=== PATIENT | female | born 1990 | race Caucasian/White ===

== ENCOUNTER → 2018-05-11 | Outpatient (CLI) | payer OTHER | LOC: FIMAGING 13:20 | PROVIDERS: ATTEND Advanced Practice Midwife | DX: O28.5 Abnormal chromosomal and genetic finding on antenatal screening of mother (principal); Z3A.32 32 weeks gestation of pregnancy ==

== ENCOUNTER 2018-07-04 05:05 | Inpatient (IN) | payer OTHER ==
[2018-07-04] MEDS ORDERED: EPSOM SALT 454 GM TP PRN (05:37)
[2018-07-04] MEDS ORDERED: TERBUTALINE SULFATE 1 MG/ML VIAL IV PRN (05:37)
[2018-07-04] MEDS ORDERED: OXYTOCIN/RINGERS LACTATE 1,000 ML IV PRN (05:37)
[2018-07-04] MEDS ORDERED: LR 1,000 ML IV PRN (05:37)
[2018-07-04] MEDS ORDERED: IBUPROFEN 600 MG TAB PO PRN (05:37)
[2018-07-04] MEDS ORDERED: OLIVE OIL 118 ML BTL MISC PRN (05:37)
[2018-07-04] MEDS ORDERED: LIDOCAINE 1% 300 MG/30 ML SDV SC PRN (05:37)
[2018-07-04] MEDS ORDERED: MISOPROSTOL 200 MCG TAB PR PRN (05:37)
[2018-07-04] MEDS ORDERED: AMPICILLIN SODIUM 2 GM in NS 100 ML IV ONE (05:37)
[2018-07-04 05:55] LABS: PLATELET COUNT 204 10^3/uL (150-400)
[2018-07-04] MEDS ORDERED: AMPICILLIN SODIUM 2 GM/10 ML VIAL ONE (05:55)
--- NOTE | 2018-07-04 06:22 | PDGENHP ---
History and Physical History and Physical: CARE: [facility] HPI: Patient is a 28 yo G 2 P 0 @ 39.5 weeks that presents to L&D with complaints of strong uterine ctx. EDC: 07/06/18 which is based on LMP: 09/29/18 which is known and consistent with Ultrasound at 20 weeks. Her is complicated by: +GBS bacteruria, depression and anxiety, daily MJ use Review of Systems: Constitutional: Denies any fever, chills, or fatigue HEENT: denies any visual changes, difficulty swallowing, hearing loss Cardiovascular: Denies any chest pain, palpitations, leg swelling Respiratory: denies any cough, wheezing, or shortness of breathe GI: Denies any nausea, vomiting, diarrhea, constipation : denies any dysuria, urgency, frequency, vaginal bleeding Musculoskeletal: denies any muscle or bone pain Skin: denies any rashes Neuro: denies any headache, seizures, lightheadedness, dizziness, or loss of consciousness Psychiatric: denies any depression, anxiety, or SI/HI thoughts HISTORY: Previous OB history: EAB in 2014 Social history: partner Paul, employed [employer] Family history: mother hypothyroid Past medical history: depression and anxiety Past surgical history: denies Medications: PNV Allergies (list reaction): NKDA LABS: Rh: O+ ABS: Neg Rubella: Immune HbsAg: NR HIV: NR VDRL: NR 1hr: 83 GC: Neg Chlamydia: Neg Pap: Normal GBS: + bacteruria BMI: (prepreg) 30 PHYSICAL EXAM: Constitutional: WN, A&Ox3 HEENT: normocephalic atraumatic, supple Heart: RRR, no murmur Chest: CTA-B Skin: warm, dry, intact Abdomen: Soft, nontender, gravid SVE: 7-8/90/-1 Extremities: [ ] edema, negative homans sign Neuro: grossly normal Psych: normal affect assessment: FHT baseline 130, +accels, no decels, moderate variability Contractions: toco q 2-3 min Assessment: 1) 28 yo G 2 P 0 with IUP@ 39w5d 2) active labor 3) GBS pos 4) Cat 1 FHR tracing Plan: 1) Admit to L&D 2) antibiotic therapy 3) anticipate
[2018-07-04] MEDS ORDERED: OLIVE OIL 118 ML BTL ONE (06:24)
[2018-07-04] MEDS ORDERED: AMMONIA AROMATIC 1 EACH AMP IH ONE (06:24)
[2018-07-04] MEDS ORDERED: LIDOCAINE 1% 300 MG/30 ML SDV ONE (06:24)
[2018-07-04] MEDS ORDERED: TERBUTALINE SULFATE 1 MG/ML VIAL ONE (06:24)
[2018-07-04] MEDS ORDERED: OXYTOCIN 10 UNIT/ML VIAL ONE (06:24)
[2018-07-04] MEDS ORDERED: MISOPROSTOL 200 MCG TAB ONE (06:24)
[2018-07-04] MEDS ORDERED: HYDROCORTISONE 0.5% CREAM TP PRN (07:38)
--- NOTE | 2018-07-04 07:46 | OBDEL ---
Info Type: Vaginal Presentation at Delivery: Vertex L&D Analgesia/Anesthesia Type: Nitrous GBS+: Yes (treated x 1 ) Intrapartum Medications: Discontinued Medications Generic Name Dose Route Start Last Admin Trade Name Quinn PRN Reason Stop Dose Admin Ampicillin Sodium 2 gm/ Sodium 110 mls @ 220 mls/hr 07/04/18 05:37 07/04/18 05:58 Chloride IV 07/04/18 06:06 110 mls ONCE ONE Administration Protocol Indications for Delivery: Spontaneous Labor, SROM Vaginal Delivery - Delivery Provider Delivery Physician/CNM: Sobeida Canrevoal proctoring) - Labor and Delivery Onset of Contractions Date: 07/04/18 Onset of Contractions Time: 01:00 Onset of Contractions Type: Spontaneous Rupture of Membranes Date: 07/04/18 Rupture of Membranes Time: 06:45 Rupture of Membranes Type: Spontaneous Amniotic Fluid Color: Clear Dilation Complete Date: 07/04/18 Dilation Complete Time: 06:45 Placenta Delivery Date: 07/04/18 Placenta Delivery Time: 06:53 Total Hours of Labor: 5 Laceration: 1st Degree (periurethral) Repair: 4-0, Chromic (Leida rosales assumed care for delivery) Vaginal Sponge Count Correct: Yes Vaginal Needle Count Correct: Yes Vaginal Sweep Performed: Yes EBL: 200 Data AMALIA: 07/06/18 Gestational Age: 39 week(s) and 5 day(s) Anders Delivery Date: 07/04/18 Delivery Time: 07:14 Sex of : Female Score (1 Min): 8 Score (5 Min): 9 (Cammie to evaluate) ICD10 Worksheet Patient Problems: Problems Problem Status Onset (normal spontaneous vaginal delivery) Acute Term Acute - ICD10 Problem Qualifiers (1) Term (2) (normal spontaneous vaginal delivery)
[2018-07-04] MEDS: ACETAMINOPHEN 325 MG TAB PO SCH ×3 (08:55→22:34)
[2018-07-04] MEDS ORDERED: AMPICILLIN SODIUM 1 GM in NS 100 ML IV SCH (09:45)
[2018-07-04] MEDS: DOCUSATE SODIUM 100 MG CAP PO PRN ×2 (14:16→22:34)
[2018-07-04] MEDS: IBUPROFEN 600 MG TAB PO SCH ×2 (14:16→20:03)
[2018-07-05] MEDS: IBUPROFEN 600 MG TAB PO SCH ×3 (01:58→15:51)
[2018-07-05] MEDS: ACETAMINOPHEN 325 MG TAB PO SCH ×3 (04:58→18:32)
[2018-07-05] MEDS: DOCUSATE SODIUM 100 MG CAP PO PRN (08:46)
[2018-07-05 12:29] VITALS: BP 112/72
--- NOTE | 2018-07-05 14:42 | OBGCSDC ---
General Delivery Information - General Info : 2 Para: 1 Abortions: 1 Type: Vaginal L&D Analgesia/Anesthesia Type: Nitrous Admission Date: 07/04/18 Labs: Patient ABO/Rh O POSITIVE 07/04/18 05:40 Hct 37.3 % (38.0-47.0) L 07/05/18 05:00 - Hospital Course : 07/05/18 14:39 S) Pt doing well, reports min pain and bleeding. she is ambulating and voiding without difficulty. She is . She desires discharge home today. O) VSS, afebrile constitutional: WNF, A&Ox3 HEENT: normocephalic, atraumatic, supple Heart: RRR, No murmur Chest: CTA-B Breasts: soft, nontender, no engorgement, nipples intact/normal Abdomen: Soft, nontender Uterus: Firm at U-2 Lochia: Minimal rubra Perineum: Intact, healing well Extremities: Trace edema, and negative Yamel's sign Neuro: Grossly normal A) 28-year-old S/P PPD#2 P) Discharge home today Continue Pelvic rest x6wks Discussed danger signs (infection, preeclampsia, depression, heavy bleeding, etc ) RTO in 2/4/6 weeks 07/05/18 14:40 Vaginal - Delivery Provider Delivery Physician/CNM: Sobeida Chew (revoal proctoring) - Diagnosis Labor: Spontaneous Rupture of Membranes Type: Spontaneous Amniotic Fluid Color: Clear Laceration: 1st Degree (periurethral) Repair: 4-0, Chromic (Leida rosales assumed care for delivery) - Delivery EBL: 200 [place] Data AMALIA: 07/06/18 Gestational Age: 39 week(s) and 6 day(s) Anders Delivery Date: 07/04/18 Delivery Time: 07:14 Sex of Infant: Female Clayton Weight (gm): 3268 g Score (1 Min): 8 Score (5 Min): 9
== END 2018-07-05 19:20 | disposition home or self-care (01) | DRG 775 ==
LOC: OBSVTOIN 05:05 → FLD 05:05 → FOB 09:45
PROVIDERS: ADMIT Advanced Practice Midwife; ATTEND Advanced Practice Midwife
DX: O99.824 Streptococcus B carrier state complicating childbirth (principal); Z37.0 Single live birth; Z3A.39 39 weeks gestation of pregnancy; O99.344 Other mental disorders complicating childbirth; F41.8 Other specified anxiety disorders; O99.324 Drug use complicating childbirth; F12.90 Cannabis use, unspecified, uncomplicated; O70.0 First degree perineal laceration during delivery
CPT/HCPCS: J0290; J2590; J3105

== ENCOUNTER 2018-09-03 12:24 | Emergency (ER) | payer OTHER ==
--- NOTE | 2018-09-03 12:30 | EDPHY ---
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 Time Seen by Provider: 09/03/18 12:30 - Personal History LMP (Females 10-55): Unknown - Medical/Surgical History Hx Asthma: No Hx Chronic Respiratory Disease: No Hx Diabetes: No Hx Cardiac Disease: No Hx Renal Disease: No Hx Cirrhosis: No Hx Alcoholism: No Hx HIV/AIDS: No Hx Splenectomy or Spleen Trauma: No Other PMH: vaginal 07/04 - Social History Smoking Status: Never smoked Constitutional: Initial Vital Signs Temperature (C) 36.7 C 09/03/18 12:27 Heart Rate 106 H 09/03/18 12:27 Respiratory Rate 18 09/03/18 12:27 Blood Pressure 122/90 H 09/03/18 12:27 O2 Sat (%) 97 09/03/18 12:27 O2 Delivery Mode Room Air Allergies/Adverse Reactions: hydrocodone Allergy (Verified 09/03/18 12:26) Home Medications: Medication Instructions Recorded 07/04/18 Medical Decision Making ED Course/Re-evaluation: CHIEF COMPLAINT: Passing out HISTORY OF PRESENT ILLNESS: Healthy 28-year-old female who just had a child. She was on the phone with her sister when she swallowed some water and it did go down the right pipe according to her. She felt severe pain in her chest and then told her sister as she started to cough that she thinks she was going to pass out. She woke up on the ground. She has no injuries. She has never had these issues before. She is completely healthy. She denies any chest pain or chest pressure. This episode was clearly associated with a feeling of a tight knot in her chest either from an esophageal spasm or when the water went down the wrong pipe. She then coughed felt lightheaded and dizzy knew she was going to pass out and passed out. REVIEW OF SYSTEMS: A comprehensive 10 system review of systems is otherwise negative aside from elements mentioned in the history of present illness and medical decision making. PHYSICAL EXAM: HR, BP, O2 Sat, RR. Temp noted General Appearance: Alert, well hydrated, appropriate, and non-toxic appearing. Head: Atraumatic without scalp tenderness or obvious injury Eyes: Pupils equal, round, reactive to light and accommodation, EOMI, no trauma , no injection. Ears: Clear bilaterally, no perforation, normal landmarks Nose: Atraumatic, no rhinorrhea, clear. Throat: There is no erythema or exudates, no lesions, normal tonsils, mucus membranes moist. Neck: Supple, 2+ carotid upstroke, nontender, no lymphadenopathy. Respiratory: No retractions, no distress, no wheezes, and no accessory muscle use. Lungs are clear to auscultation bilaterally. Cardiovascular: Regular rate and rhythm, no murmurs, rubs, or gallops. Bilateral carotid, radial, dorsalis pedis, and posterior tibial pulses intact. Good capillary refill all extremities. Gastrointestinal: Abdomen is soft, nontender, non-distended, no masses, no rebound, no guarding, no peritoneal signs. Musculoskeletal: Normal active ROM of all extremities, atraumatic. Neurological: Alert, appropriate, and interactive. The patient has normal DTRs and non-focal cranial nerves, motor, sensory, and cerebellar exam. Skin: No rashes, good turgor, no nodules on palpation. Past medical history: None Past surgical history: None Family history: Noncontributory specially for syncope or cardiac issues Social history: , employed, new baby, does not use tobacco drugs or alcohol DIAGNOSTICS/PROCEDURES/CRITICAL CARE TIME: The 12 lead EKG was interpreted by myself. See hard copy and/or "tracemaster" electronic copy for interpretation. Sinus mechanism no ischemia normal intervals DIFFERENTIAL DIAGNOSIS: The differential diagnosis for the patient's syncope included but was not limited to vasovagal syncope, arrhythmia, dehydration, cardiogenic causes, neurogenic causes, and blood loss. MEDICAL DECISION MAKING: This young healthy woman had a classic vasovagal syncope. Her EKG is normal. Her troponin is normal. Her Chem 8 POC is normal. I have explained everything to the patient and her who is at the bedside they are comfortable with the plan and she will go home and stay hydrated. Departure - Departure Disposition: Home, Routine, Self-Care Clinical Impression: Vasovagal syncope Condition: Good Instructions: Syncope (ED) Referrals: Didi Nath MD [Primary Care Provider] - As per Instructions
[2018-09-03 13:16] VITALS: BP 142/73
--- NOTE | 2018-09-03 13:32 | CPEKG ---
Test Reason : OPEN Blood Pressure : / mmHG Vent. Rate : 094 BPM Atrial Rate : 089 BPM P-R Int : 163 ms QRS Dur : 072 ms QT Int : 349 ms P-R-T Axes : 078 046 030 degrees QTc Int : 437 ms Sinus rhythm Confirmed by Weston Guzman ([id number]) on 09/03/2018 1:32:35 PM Referred By: Confirmed By:Weston Guzman
== END 2018-09-03 13:15 | disposition home or self-care (01) ==
DX: R55 Syncope and collapse (principal); R07.9 Chest pain, unspecified
CPT/HCPCS: 82435-PO; 82565-PO; 82947-PO; 84132-PO; 84295-PO; 84484-PO; 84520-PO; 85014-PO

== ENCOUNTER 2018-12-04 02:21 | Emergency (ER) | payer OTHER ==
--- NOTE | 2018-12-04 02:30 | EDPHY ---
H & P Stated Complaint: cough, SOB, V/D Time Seen by Provider: 12/04/18 02:30 HPI/ROS: HPI CHIEF COMPLAINT: Cough HISTORY OF PRESENT ILLNESS: This is a very pleasant 28-year-old female she is otherwise healthy, immunocompetent, denies any significant medical history presents emergency room with cough. Patient states for the past week she has had progressive cough. Mainly clear sputum. No blood. Denies fever. States she could not sleep tonight had increasing shortness of breath and cough. She states her is sick with a cold. Additionally her 5 month has been coughing as well. 1 episode of diarrhea. 1 episode of vomiting. No significant pain. Past Medical History: Denies significant medical history Past Surgical History: Denies significant surgical history Social History: Denies drugs alcohol tobacco. Family History: Noncontributory ROS REVIEW OF SYSTEMS: 10 Systems were reviewed and negative with the exception of the elements mentioned in the history of present illness. Exam Constitutional appears well nontoxic no acute distress triage nursing summary reviewed, vital signs reviewed, awake/alert. Eyes normal conjunctivae and sclera, EOMI, PERRLA. HENT normal inspection, atraumatic, moist mucus membranes, no epistaxis, neck supple/ no meningismus, no raccoon eyes. Respiratory bronchitic sounding cough on exam clear to auscultation bilaterally , normal breath sounds, no respiratory distress, no wheezing. Cardiovascular rate normal, regular rhythm, no murmur, no edema, distal pulses normal. Gastrointestinal soft, non-tender, no rebound, no guarding, normal bowel sounds, no distension, no pulsatile mass. Genitourinary no CVA tenderness. Musculoskeletal no midline vertebral tenderness, full range of motion, no calf swelling, no tenderness of extremities, no meningismus, good pulses, neurovascularly intact. Skin pink, warm, & dry, no rash, skin atraumatic. Neurologic awake, alert and oriented x 3, AAOx3, moves all 4 extremities equally, motor intact, sensory intact, CN II-XII intact, normal cerebellar, normal vision, normal speech. Psychiatric normal mood/affect. Heme/Lymph/Immune no lymphadenopathy. Differential Diagnosis: Includes but is not limited to in a particular order viral syndrome, URI, viral pneumonia, bacterial pneumonia, bronchitis Medical Decision Making: Plan for this patient two view chest x-ray, DuoNeb breathing treatment, influenza and re-evaluate. Re-evaluation: Negative RSV Negative influenza. Chest x-ray two view: Negative for acute cardiopulmonary disease. Specifically no pneumonia. 0403: Patient re-evaluated this time feeling much better after DuoNeb breathing treatment. Clear lungs bilaterally. No distress. She denies any chest pain or shortness of breath. She is congested. Plan for Mucinex, prednisone, albuterol 2 puffs every 4 hr as needed for shortness of breath and wheezing. Return precautions discussed return emergency room if worsening symptoms I believe she is a viral illness URI. No evidence of bacterial infection. Offer patient a prescription for Mucinex and prednisone however she declined prednisone prescription she is okay with Mucinex. She will consult her donor specialist if she has will take the Mucinex while . Return precautions discussed with the patient she understands return emergency develops worsening shortness of breath, fever, vomiting, not doing well. Source: Patient - Personal History Current Tetanus Diphtheria and Acellular Pertussis (TDAP): Yes - Medical/Surgical History Hx Asthma: No Hx Chronic Respiratory Disease: No Hx Diabetes: No Hx Cardiac Disease: No Hx Renal Disease: No Hx Cirrhosis: No Hx Alcoholism: No Hx HIV/AIDS: No Hx Splenectomy or Spleen Trauma: No Other PMH: vaginal 07/04 - Social History Smoking Status: Never smoked Constitutional: Initial Vital Signs Temperature (C) 36.8 C 12/04/18 02:25 Heart Rate 95 12/04/18 02:25 Respiratory Rate 20 12/04/18 02:25 Blood Pressure 123/99 H 12/04/18 02:25 O2 Sat (%) 95 12/04/18 02:25 O2 Delivery Mode Room Air Allergies/Adverse Reactions: hydrocodone Allergy (Verified 12/04/18 02:25) Home Medications: Medication Instructions Recorded 07/04/18 guaiFENesin [Guaifenesin ER] 600 mg PO BID #14 tab.er.12h 12/04/18 predniSONE 60 mg PO DAILY #9 tab 12/04/18 Medical Decision Making - Data Points Laboratory Results: 12/04/18 02:50 Nasal Influenza A PCR NEGATIVE FOR FLU A (NEGATIVE) Nasal Influenza B PCR NEGATIVE FOR FLU B (NEGATIVE) RSV (PCR) NEGATIVE FOR RSV (NEGATIVE) Medications Given: Discontinued Medications Albuterol Sulfate (Proventil Inh Prepack) 1 mdi TAKEJOIE EDNOW ONE Stop: 12/04/18 02:54 Last Admin: 12/04/18 04:05 Dose: 1 mdi Albuterol/Ipratropium (Duoneb) 3 ml IH EDNOW ONE Stop: 12/04/18 02:48 Last Admin: 12/04/18 02:50 Dose: 3 ml Departure - Departure Disposition: Home, Routine, Self-Care Clinical Impression: Viral syndrome URI (upper respiratory infection) Qualifiers: URI type: unspecified viral URI Qualified Code(s): J06.9 - Acute upper respiratory infection, unspecified Condition: Good Instructions: Albuterol (By breathing), Viral Syndrome (ED) Additional Instructions: 1. Drink lots of fluids stay well-hydrated. 2. Albuterol inhaler 2 puffs every 4 hr as needed. Referrals: NONE *PRIMARY CARE P,. [Primary Care Provider] - As per Instructions Prescriptions: guaiFENesin [Guaifenesin ER] 600 mg PO BID #14 tab.er.12h predniSONE 60 mg PO DAILY #9 tab
[2018-12-04] MEDS ORDERED: IPRATROPIUM/ALBUTEROL 3 ML DEYVIAL IH ONE (02:47)
[2018-12-04] MEDS ORDERED: IPRATROPIUM/ALBUTEROL 3 ML DEYVIAL ONE (02:47)
[2018-12-04] MEDS ORDERED: ALBUTEROL INH PREPACK MDI TAKEHOME ONE (02:53)
[2018-12-04 04:12] VITALS: BP 130/88
== END 2018-12-04 04:12 | disposition home or self-care (01) ==
DX: B34.9 Viral infection, unspecified (principal)